=== PATIENT | female | born 1980 | race Caucasian/White ===

== ENCOUNTER 2023-01-10 14:56 | Outpatient (REF) | payer BC, SELFPAY ==
[2023-01-10 16:32] LABS: Chloride* 105 mmol/L (96-114); Potassium* 4.5 mmol/L (3.6-5.1); Sodium* 139 mmol/L (135-149)
[2023-01-10 16:34] LABS: Anion Gap 6 mEq/L (7-15); Aspartate Amino Transferase* 28 U/L (12-35); Bilirubin Total* 0.2 mg/dL (0.1-1.5); Carbon Dioxide* 28 mmol/L (20-32); Creatinine* 0.8 mg/dL (0.5-1.5); Estimated Glomerular Filt Rate 95 ml/min
[2023-01-10 16:35] LABS: Alanine Aminotransferase* 31 U/L (4-35); Alkaline Phosphatase* 92 U/L (40-150); Blood Urea Nitrogen* 13 mg/dL (5-24); Glucose* 120 mg/dL (60-115); Total Protein* 6.8 g/dL (6.0-8.3)
[2023-01-15 15:04] LABS: Calcium* 9.4 mg/dL (8.4-10.6)
== END 2023-01-10 14:57 | disposition home or self-care (01) ==
LOC: NPINS 14:56
PROVIDERS: PCP Family Medicine
DX: E66.09 Other obesity due to excess calories (principal)
CPT/HCPCS: 80048; 80053; 84443; 84460; 85025